=== PATIENT | female | born 1990 | race Caucasian/White ===

== ENCOUNTER 2020-06-26 15:19 | Emergency (ER) | payer SELFPAY ==
[~2020-06-26] VITALS: Ht 172.7 cm; Wt 64.0 kg
[2020-06-26] MEDS ORDERED: metroNIDAZOLE 500 MG TABLET PO ONE (16:15)
[2020-06-26] MEDS ORDERED: DOXYCYCLINE HYCLATE 100 MG TABLET PO ONE (16:15)
[2020-06-26] MEDS ORDERED: cefTRIAXone IM 500 MG VIAL. IM ONE (16:15)
[2020-06-26 16:24] LABS: BILIRUBIN,URINE NEGATIVE (NEG); CLARITY,URINE CLEAR; COLOR,URINE YELLOW; NITRITE,URINE NEGATIVE (NEG); PH,URINE 5.5 (<5.0-8.0); PROTEIN,URINE NEGATIVE (NEG-TRACE); UROBILINOGEN,URINE 0.2 mg/dL (0.2 mg/dL)
[2020-06-26 16:31] LABS: BARBITURATES NEG (NEG); BENZODIAZEPINES NEG (NEG); CANNABINOIDS POS (NEG); COCAINE NEG (NEG); METHADONE NEG (NEG); OPIATES NEG (NEG); PHENCYCLIDINE NEG (NEG)
[2020-06-26] MEDS ORDERED: LIDOCAINE 1% PF 2 ML VIAL. ONE (16:31)
[2020-06-26 16:35] LABS: BACTERIA,URINE FEW /HPF (0-FEW); RBC,URINE 0 /HPF (0-2)
[2020-06-26 16:40] LABS: AMPHETAMINE/METHAMPHETAMINE POS (NEG)
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
[2020-06-26] MEDS ORDERED: CEPH500T PO (18:52)
[2020-06-26] MEDS ORDERED: DOXY100T PO (18:52)
[2020-06-26 19:19] VITALS: BP 113/64
== END 2020-06-26 22:30 | disposition home or self-care (01) ==
LOC: ER 15:19
DX: T74.21XA Adult sexual abuse, confirmed, initial encounter (principal); F15.90 Other stimulant use, unspecified, uncomplicated; N39.0 Urinary tract infection, site not specified; Z20.2 Contact with and (suspected) exposure to infections with a predominantly sexual mode of transmission; F17.200 Nicotine dependence, unspecified, uncomplicated; Z88.5 Allergy status to narcotic agent
CPT/HCPCS: 80307; 81001; 81025; 87086; 87491; 87591; 96372; 99285; J0696